=== PATIENT | male | born 1995 | race Caucasian/White ===

== ENCOUNTER 2019-09-01 18:03 | Emergency (ER) | payer BC ==
[2019-09-01] MEDS ORDERED: Lidocaine 1% w/Epinephrine 1:100K 30 ML VIAL ONE (18:12)
== END 2019-09-01 19:00 | disposition home or self-care (01) ==
LOC: BURERS 18:03
DX: S61.012A Laceration without foreign body of left thumb without damage to nail, initial encounter (principal); J45.909 Unspecified asthma, uncomplicated; Z79.51 Long term (current) use of inhaled steroids
CPT/HCPCS: 12001; J2001

== ENCOUNTER 2020-10-23 16:26 | Emergency (ER) | payer BC ==
[2020-10-23] MEDS ORDERED: traMADol HCl 50 MG TAB ONE (17:54)
[2020-10-23] MEDS ORDERED: Ibuprofen 800 MG TAB ONE (17:54)
== END 2020-10-23 17:59 | disposition home or self-care (01) ==
LOC: BURERS 16:26
DX: S01.81XA Laceration without foreign body of other part of head, initial encounter (principal); J45.909 Unspecified asthma, uncomplicated; F17.220 Nicotine dependence, chewing tobacco, uncomplicated; W26.9XXA Contact with unspecified sharp object(s), initial encounter
CPT/HCPCS: 12013; 70450

== ENCOUNTER 2024-08-18 16:40 | Emergency (ER) | payer OTHER, SELFPAY ==
[2024-08-18] MEDS ORDERED: Ondansetron ODT 4 MG TAB ONE (16:52)
[2024-08-18] MEDS ORDERED: Ketorolac Tromethamine 30 MG (1 mL) VIAL ONE (16:52)
[2024-08-18] MEDS ORDERED: Dicyclomine 20 MG/2 ML VIAL ONE (16:52)
== END 2024-08-18 17:29 | disposition home or self-care (01) ==
LOC: BURERS 16:40
DX: K52.9 Noninfective gastroenteritis and colitis, unspecified (principal); R11.2 Nausea with vomiting, unspecified; R50.9 Fever, unspecified
CPT/HCPCS: 87400; 87426; 96372; 99283; J1885; Q0162